=== PATIENT | male | born 1960 | race Caucasian/White ===

== ENCOUNTER 2018-10-05 11:37 | Emergency (ER) | payer MEDICARE ==
[~2018-10-05] VITALS: Ht 180.3 cm; Wt 93.9 kg
[2018-10-05] MEDS ORDERED: LEVSOD50 PO (11:51)
[2018-10-05 12:21] LABS: BASOPHILS ABSOLUTE AUTO 0.05 K/mm3 (0.00-0.23); BASOPHILS PERCENT AUTO 1 % (0-2); EOSINOPHILS ABSOLUTE AUTO 0.35 K/mm3 (0.00-0.68); EOSINOPHILS PERCENT AUTO 3 % (0-6); Hematocrit 46.4 % (37.0-53.0); Hemoglobin 15.6 g/dL (13.5-17.5); IMMATURE GRAN ABSOLUTE AUTO 0.03 K/mm3 (0.00-0.10); IMMATURE GRAN PERCENT AUTO 0 % (0-1); LYMPHOCYTES ABSOLUTE AUTO 3.96 K/mm3 (0.84-5.20); LYMPHOCYTES PERCENT AUTO 39 % (21-46); MONOCYTES ABSOLUTE AUTO 0.76 K/mm3 (0.16-1.47); MONOCYTES PERCENT AUTO 7 % (4-13); Mean Corpuscular HGB 31.1 pg (26.0-34.0); Mean Corpuscular HGB Conc 33.6 g/dL (31.5-36.5); Mean Corpuscular Volume 92 fL (80-100); Mean Platelet Volume 9.4 fL (9.1-12.4); NEUTROPHILS ABSOLUTE AUTO 5.12 K/mm3 (1.96-9.15); NEUTROPHILS PERCENT AUTO 50 % (41-73); Platelet Count 393 K/mm3 (150-400); RDW Coefficient Variation 13.2 % (11.7-14.2); RDW Standard Deviation 44.8 fL (35.1-46.3); Red Blood Cell Count 5.02 M/mm3 (4.30-5.90); White Blood Cell Count 10.27 K/mm3 (4.00-11.30)
[2018-10-05 12:44] LABS: Alanine Aminotransfer (ALT/SGP 61 U/L (12-78); Albumin, Blood 3.9 g/dL (3.4-5.0); Albumin/Globulin Ratio 0.9 (0.8-1.8); Alk Phos 68 U/L (50-136); Anion Gap 7 mmol/L (6-16); Aspartate Aminotrans (AST/SGOT 41 U/L (12-37); Bilirubin, Total 0.3 mg/dL (0.1-1.0); Blood Urea Nitrogen 15 mg/dL (8-24); Bun/Creatinine Ratio 19.5 (12.0-20.0); CO2, Blood 26 mmol/L (21-32); Calcium, Blood 8.7 mg/dL (8.5-10.1); Chloride, Blood 106 mmol/L (98-108); Creatinine, Blood 0.77 mg/dL (0.60-1.20); Globulin, Blood 4.3 g/dL (2.2-4.0); Glomerular Filtration Rate >60 (60-); Glucose, Blood 117 mg/dL (70-99); Potassium, Blood 4.3 mmol/L (3.5-5.5); Sodium, Blood 139 mmol/L (136-145); Total Protein, Blood 8.2 g/dL (6.4-8.2); Troponin I <0.015 ng/mL (0.000-0.040)
[2018-10-05] MEDS ORDERED: HYDHCL25 PO (16:15)
== END 2018-10-05 16:28 | disposition home or self-care (01) ==
LOC: ER 11:37
PROVIDERS: Physician Assistant
DX: R07.9 Chest pain, unspecified (principal); Z79.899 Other long term (current) drug therapy; E03.9 Hypothyroidism, unspecified; F17.200 Nicotine dependence, unspecified, uncomplicated
CPT/HCPCS: 36415; 71046; 71260; 80053; 84439; 84484; 85025; 93005; 93010; 96361; 96374-59; 99285-25; J2060; J7030; Q9967

== ENCOUNTER 2019-04-11 20:06 | Emergency (ER) | payer OTHER, MEDICARE ==
[~2019-04-11] VITALS: Ht 180.3 cm; Wt 95.2 kg
[~2019-04-11 20:06] MED LIST: HYDHCL25 PO; LEVSOD50 PO
== END 2019-04-11 22:23 | disposition home or self-care (01) ==
LOC: ER 20:06
DX: T18.128A Food in esophagus causing other injury, initial encounter (principal); F17.210 Nicotine dependence, cigarettes, uncomplicated; Z79.899 Other long term (current) drug therapy
CPT/HCPCS: 36415; 93005; 93010; 96374; 96375; 99283-25; J1610; J2405

== ENCOUNTER → 2019-04-18 | Outpatient (CLI) | payer MEDICARE ==
[2019-04-18 19:05] LABS: U Amphetamine Screen Not Detected; U Barbituate Screen Not Detected; U Methamphetamine Screen Not Detected
[2019-04-18 19:06] LABS: U Benzodiazapine Screen DETECTED; U Buprenorphine Screen Not Detected; U Cannabinoids Screen Not Detected; U Cocaine Screen Not Detected; U Methadone Screen DETECTED; U Opiates Screen Not Detected; U Oxycodone Screen Not Detected; U Phencyclidine Screen Not Detected; U Propoxyphene Screen Not Detected
== END ==
LOC: LAB 14:40 → LAB SHORT 14:40
PROVIDERS: Psychiatry & Neurology Psychiatry
DX: F41.1 Generalized anxiety disorder (principal); Z79.899 Other long term (current) drug therapy

== ENCOUNTER 2020-12-15 17:18 | Emergency (ER) | payer OTHER, MEDICARE ==
[~2020-12-15] VITALS: Ht 180.3 cm; Wt 81.7 kg
--- NOTE | 2020-12-15 19:42 | NUR ---
12/15/201941 Ruslan Bain History, Chart, Medications and Allergies reviewed before start of procedure.MONITOR INTACT WITH CONTINUOUS PULSE OXIMETRY AND INTERMITTENT BP.3-LEAD EKG REVIEWED WITH PHYSICIAN PRIOR TO START OF PROCEDURE.O2 VIA N/C INTACT THROUGHOUT SEDATION/PROCEDURE. PATIENT DETERMINED TO BE ASA APPROPRIATE FOR PROPOFOL SEDATION PRIOR TO START OF PROCEDURE BY DR. COSME.
[2020-12-15 19:59] LABS: SARS-Cov-2 (COVID-19) PCR, MMC NEGATIVE (NEGATIVE)
--- NOTE | 2020-12-15 21:26 | NUR ---
Patient up to Ambulate independently. Gait steady. Discharge instructions reviewed with patient. Patient verbalizes understanding. Copy given to patient to take home. Patient States Post-Procedure ride home has been arranged. Discharged via wheelchair to private car for ride home. DC'd IV site from [facility]; catheter intact. DC'd NTG paste from left chest wall per Dr. Joe.
== END 2020-12-15 19:32 | disposition other institution (70) ==
LOC: ER 17:18
PROVIDERS: Emergency Medicine
DX: T18.128A Food in esophagus causing other injury, initial encounter (principal); Z87.891 Personal history of nicotine dependence; Z79.899 Other long term (current) drug therapy; Z20.822 Contact with and (suspected) exposure to COVID-19
CPT/HCPCS: 93005; 93010; 96374; 96375; 99285-25; A9270; C1726; J1610; J2060; J2250; J2704; J7030; J7120; U0004

== ENCOUNTER 2021-02-27 11:27 | Day surgery (SDC) | payer OTHER ==
[~2021-02-27] VITALS: Ht 182.9 cm; Wt 99.1 kg
[~2021-02-27 11:27] MED LIST changes: +BUPRENORPHIN-N1 EAC1 SL; +CLON.5 PO; +HYDPAM25 PO; +LEVSOD112 PO; +METH10 PO; +VITAMIN D325 MC3 PO
--- NOTE | 2021-02-27 12:08 | NUR ---
02/27/21 1208 Khushbu Hay FIRST ATTEMPT MISSED BY SASHA IN THE RIGHT HAND. SECOND ATTEMPT MISSED BY RN IN THE RIGHT WRIST.
--- NOTE | 2021-02-27 13:02 | NUR ---
02/27/21 2238 VICKI CLOUD 20 AND NANCY [age] USED IN PROCEDURE
== END 2021-02-27 13:26 | disposition home or self-care (01) ==
LOC: ORSCSDS 11:27
PROVIDERS: Internal Medicine Gastroenterology
PROC: 0D758ZZ Dilation of Esophagus, Via Natural or Artificial Opening Endoscopic (ICD-10-PCS; 2021-02-27)
PROC: 0DB58ZX Excision of Esophagus, Via Natural or Artificial Opening Endoscopic, Diagnostic (ICD-10-PCS; principal; 2021-02-27 13:00)
DX: R13.10 Dysphagia, unspecified (principal); E03.9 Hypothyroidism, unspecified; F41.9 Anxiety disorder, unspecified; K44.9 Diaphragmatic hernia without obstruction or gangrene; Z83.71 Family history of colonic polyps; Z79.899 Other long term (current) drug therapy
CPT/HCPCS: 88305; J2704; J7120

== ENCOUNTER 2022-02-15 19:35 | Emergency (ER) | payer OTHER ==
[~2022-02-15] VITALS: Ht 180.3 cm; Wt 81.7 kg
--- NOTE | 2022-02-15 22:18 | NUR ---
02/15/22 2215 Tami Marie History, Chart, Medications and Allergies reviewed before start of procedure. MONITOR INTACT WITH CONTINUOUS PULSE OXIMETRY AND INTERMITTENT BP. O2 VIA N/C INTACT THROUGHOUT SEDATION/PROCEDURE. See Anesthesia record
--- NOTE | 2022-02-15 23:27 | NUR ---
2216- PT TO DAY SURGERY BAY #1 FOR EGD W/FB REMOVAL. RAPID COVID TEST STARTED AT THIS TIME. DR ATKINSON ANESTHESIOLOGIST HERE TO CONSULT PT. PT VSS, PT HAS HICCUPS. EMESIS BAG BY SIDE. 2234- DR COSME HERE, CONSENT SIGNED. ROSANGELA RN FROM THE ER HERE SECOND RN FOR PROCEDURE. 2249- PT TO STEP DOWN WITH ROSANGELA, AFTER SCOPE WAS WASHED, THIS RN REVIEWED DC INSTRUCTIONS WITH PT. DR COSME WAS ALSO DISCUSSING NEXT STEPS WITH PT, RX FOR PANTOPRAZOLE GIVEN PT AND [facility] OCTOBER. Discharge instructions reviewed with patient. Patient verbalizes understanding. Copy given to patient to take home. PT AMBULATED OUT OF DEPARTMENT.
== END 2022-02-15 22:15 | disposition home or self-care (01) ==
LOC: ER 19:35
DX: T17.228A Food in pharynx causing other injury, initial encounter (principal); Z87.891 Personal history of nicotine dependence
CPT/HCPCS: 99283; J1610; J2704; J7120

== ENCOUNTER 2022-06-03 13:59 | Day surgery (SDC) | payer OTHER ==
[2022-06-03] MEDS ORDERED: BUPRENORPHN-NA1 EACH (14:21)
== END 2022-06-03 17:10 | disposition home or self-care (01) ==
DX: K22.2 Esophageal obstruction (principal); K29.70 Gastritis, unspecified, without bleeding; K21.9 Gastro-esophageal reflux disease without esophagitis; K29.80 Duodenitis without bleeding; K44.9 Diaphragmatic hernia without obstruction or gangrene; G47.33 Obstructive sleep apnea (adult) (pediatric); F41.9 Anxiety disorder, unspecified; Z79.899 Other long term (current) drug therapy; Z87.891 Personal history of nicotine dependence

== ENCOUNTER 2024-06-08 06:29 | Day surgery (SDC) | payer OTHER ==
[~2024-06-08] VITALS: Ht 177.8 cm; Wt 74.0 kg
[~2024-06-08 06:29] MED LIST changes: +BUPRENORPHN-NA1 EACH; +Nicoderm Cq1 EACH TOP
[2024-06-08] MEDS ORDERED: propofoL 50 ML IV ONE (07:38)
[2024-06-08] MEDS ORDERED: Lactated Ringer's 1,000 ML IV ONE (07:47)
[2024-06-08 09:11] VITALS: BP 130/80
== END 2024-06-08 09:09 | disposition home or self-care (01) ==
LOC: ORSCSDS 06:29
PROVIDERS: Internal Medicine Gastroenterology
PROC: 0D758ZZ Dilation of Esophagus, Via Natural or Artificial Opening Endoscopic (ICD-10-PCS; principal; 2024-06-08 08:00)
PROC: 0DB58ZX Excision of Esophagus, Via Natural or Artificial Opening Endoscopic, Diagnostic (ICD-10-PCS; principal; 2024-06-08 08:00)
PROC: 0DB98ZX Excision of Duodenum, Via Natural or Artificial Opening Endoscopic, Diagnostic (ICD-10-PCS; principal; 2024-06-08 08:00)
PROC: 0DB68ZX Excision of Stomach, Via Natural or Artificial Opening Endoscopic, Diagnostic (ICD-10-PCS; principal; 2024-06-08 08:00)
DX: R13.10 Dysphagia, unspecified (principal); K22.2 Esophageal obstruction; K20.0 Eosinophilic esophagitis; K29.70 Gastritis, unspecified, without bleeding; K29.80 Duodenitis without bleeding; E03.9 Hypothyroidism, unspecified; F41.9 Anxiety disorder, unspecified; Z79.899 Other long term (current) drug therapy
CPT/HCPCS: 88305; 88342; C1726; J2704

== ENCOUNTER 2024-09-29 09:35 | Day surgery (SDC) | payer OTHER ==
[~2024-09-29] VITALS: Ht 180.3 cm; Wt 75.4 kg
[~2024-09-29 09:35] MED LIST changes: +Lactated Ringer's 1,000 ML IV ONE; +propofoL 50 ML IV ONE
[2024-09-29] MEDS ORDERED: OMEP20ER (10:27)
[2024-09-29] MEDS ORDERED: Lactated Ringer's 1,000 ML IV ONE (11:18)
[2024-09-29 13:26] VITALS: BP 111/82
== END 2024-09-29 12:45 | disposition home or self-care (01) ==
LOC: ORSCSDS 09:35
PROVIDERS: Internal Medicine Gastroenterology
PROC: 0DB58ZX Excision of Esophagus, Via Natural or Artificial Opening Endoscopic, Diagnostic (ICD-10-PCS; principal; 2024-09-29 11:15)
DX: Z87.19 Personal history of other diseases of the digestive system (principal); I25.10 Atherosclerotic heart disease of native coronary artery without angina pectoris; Z79.899 Other long term (current) drug therapy
CPT/HCPCS: 88305; J2704; J7120

== ENCOUNTER 2025-06-13 08:27 | Emergency (ER) | payer OTHER ==
[~2025-06-13] VITALS: Ht 177.8 cm; Wt 68.0 kg
[~2025-06-13 08:27] MED LIST changes: -Lactated Ringer's 1,000 ML IV ONE; +OMEP20ER; -propofoL 50 ML IV ONE
[2025-06-13 08:42] VITALS: BP 124/89
== END 2025-06-13 10:58 | disposition home or self-care (01) ==
LOC: ER 08:27
DX: S61.216A Laceration without foreign body of right little finger without damage to nail, initial encounter (principal); S61.214A Laceration without foreign body of right ring finger without damage to nail, initial encounter; K21.9 Gastro-esophageal reflux disease without esophagitis; E03.9 Hypothyroidism, unspecified; F17.210 Nicotine dependence, cigarettes, uncomplicated; Z88.8 Allergy status to other drugs, medicaments and biological substances; Z79.890 Hormone replacement therapy; Z79.899 Other long term (current) drug therapy; W01.190A Fall on same level from slipping, tripping and stumbling with subsequent striking against furniture, initial encounter
CPT/HCPCS: 12001; 99282-25